=== PATIENT | male | born 1985 | race Two or more races ===

== ENCOUNTER 2016-11-16 19:04 | Emergency (ER) | payer OTHER ==
--- NOTE | ~2016-11-16 | ER ---
PATIENT'S NAME: MARLON MARCH [facility] AGE: 31 Y [address] ROOM: [place] [address] LOCATION: ED ADMIT DATE: 11/16/2016 ER/Outpatient Report DISCHARGE DATE: 11/16/2016 FAMILY PHYSICIAN: PHYSICIAN, NO ATTENDING PHYSICIAN: Travis Stoddard Time of Patient's Arrival: 1904 hours. Time of Patient's Evaluation: 1920 hours. CHIEF COMPLAINT: Fever, headache, blurry vision. HISTORY OF PRESENT ILLNESS: This is a 31-year-old, tbr-[id number]-[id number] male who presents to the ER. States he has not been feeling well for the past 4 days. Interpretation was done through the language line. The patient states he has been having headache, he also states he has blurred vision. He states that he feels like he has fever all over his body and some body aches as well. He states that he has had no cough, no troubles breathing, no chest pain, no troubles with urination. He did take some Tylenol earlier today with no relief of his headache. The patient states he does have some eye glasses that he wears only in the summer and presley when he has normal blurred vision, but he has not been wearing them lately. ALLERGIES: NO KNOWN ALLERGIES. MEDICATIONS: Please see medication list in nurse's notes. PAST MEDICAL HISTORY: Negative. SOCIAL HISTORY: Denies smoking, drug, or alcohol use. REVIEW OF SYSTEMS: A 10-point review of systems was completed and was negative with the exception of those discussed in the HPI. PHYSICAL EXAMINATION: VITAL SIGNS: Weight is 80.7 kg taken, blood pressure is 120/80, pulse 95, respirations , temperature 99.3 degrees tympanically, and saturations 100% on room air. Bentley Coma Score is 15. GENERAL: Alert, calm, well-developed male, in no acute distress. PATIENT'S NAME: ARYAN ALAMO [facility] AGE: 31 Y [address] ROOM: [place] [address] LOCATION: ED ADMIT DATE: 11/16/2016 ER/Outpatient Report DISCHARGE DATE: 11/16/2016 FAMILY PHYSICIAN: PHYSICIAN, NO ATTENDING PHYSICIAN: Travis StoddardENT: Head: Normocephalic. Eyes: Pupils are equal and reactive to light. Ears: TMs display good light reflexes bilaterally. Auditory canals clear. Nose: Turbinates pink with no drainage. Throat is erythematic. No exudates were seen. No lymphadenopathy. LUNGS: Clear to auscultation bilaterally. No wheeze or crackles. Normal respiratory effort. HEART: Regular rate and rhythm. No lifts, thrills, or murmurs. EXTREMITIES: No clubbing, cyanosis, or edema. Full range of motion of all limbs. LABORATORY DATA: CBC: White count is 7.6, hemoglobin is 17.3, and platelets 179. Influenza A and B were negative. Rapid strep was negative. IMPRESSION: 1. Headache. 2. Chills. 3. Blurred vision. ASSESSMENT AND PLAN: We did monitor the patient here for quite some time. We did give him some ibuprofen and some Zofran here, which did improve his headache. I did have him put his eye glasses on, he states that that corrected his blurred vision. I did tell him that straining with his eyes like that could cause headache, so I advised him to use his glasses everyday. He may take Tylenol or ibuprofen as needed for pain control. Continue to push fluids, monitor symptoms, and follow up with primary care physician if he does not improve. The patient understands and agrees with care. ULICES FORD PA-C FOR DO YVETTE QUIROZ/michael /[id number] d: 11/17/16231 t: 11/27/16 0112, OUTPATIENT REPORT
[2016-11-16 19:51] LABS: BASOPHIL % 0.4 %; EOSINOPHIL # 0.2 K/uL (0.0-0.5); EOSINOPHIL % 2.8 %; HEMOGLOBIN 17.3 g/dL (12.0-17.0); IMMATURE GRANULOCYTE % 0.5 %; LYMPHOCYTE # 1.5 K/uL (0.8-4.0); LYMPHOCYTE % 19.7 %; MCH 30.1 pg (27.0-34.0); MCV 83.6 fl (83.0-98.0); MONOCYTE # 0.4 K/uL (0.0-1.0); MONOCYTE % 5.7 %; MPV 11.7 fl (9.4-12.4); NEUTROPHIL # (ANC) 5.4 K/uL (1.4-9.0); NEUTROPHIL % 70.9 %; NRBC % 0 /100WBC (0-0.00); PLATELET COUNT 179 K/uL (150-450); RBC 5.74 M/uL (4.00-6.00); RDW-CV 11.4 % (11.9-14.6); WBC 7.6 K/uL (4.0-11.0)
== END 2016-11-16 20:57 | disposition disaster alternative care site (69) ==
LOC: GMED 19:04
PROVIDERS: Physician Assistant Medical
DX: R50.9 Fever, unspecified (principal); R51 Headache; H53.8 Other visual disturbances

== ENCOUNTER 2016-11-24 10:46 | Inpatient (IN) | payer OTHER ==
[~2016-11-24] VITALS: Ht 175.3 cm; Wt 78.5 kg
--- NOTE | ~2016-11-24 | HP ---
PATIENT'S NAME: MARLON MARCH [facility] AGE: 31 Y [address] ROOM: [place] [address] LOCATION: [facility] ADMIT DATE: 11/24/2016 History & Physical DISCHARGE DATE: FAMILY PHYSICIAN: PHYSICIAN, NO ATTENDING PHYSICIAN: VICENTE JAMES DATE OF SERVICE: CHIEF COMPLAINT: Left lower quadrant abdominal pain. HISTORY OF PRESENT ILLNESS: This is a 31-year-old, -speaking patient who was transferred from [place] to the emergency room of [facility] for management of his elevated blood sugar. History was obtained from the patient through with visual laborer construction or leak gang, Lorrie. The patient is a very poor historian with difficulty understanding the questions which visual posted to him. He reported that he has been having left lower quadrant abdominal pain for the past 2 years on and off. He could not state the severity of the pain as he did not understand what the question was trying to ask him. He denies fever, denies nausea, denies diarrhea. The patient was seen in the ER around 4 days ago when he presented with fever, headache, blurry vision. At that time, nothing significant was found. His symptoms were found to be attributed to the fact that he was not wearing his glasses and so he was given some Tylenol and was told that he should ensure that he wears his glasses regularly and was discharged home. Currently, he also complains of blurry vision and headache. Denies back pain. Denies neck pain. Denies cough. Denies chest pain. Denies urinary symptoms. On arrival to the ER, the patient's blood sugar on chemistry was found to be 755 and he was started on insulin drip and received a total of 2 L of normal saline while in the ER. REVIEW OF SYSTEMS: The 13 elements of review of systems were asked and as documented in the HPI. The others are negative. PAST MEDICAL HISTORY: As per patient, none. PAST SURGICAL HISTORY: As per patient, none. SOCIAL HISTORY: As per patient, denies use of alcohol. Denies history of smoking. FAMILY HISTORY: PATIENT'S NAME: MARLON MARCH [facility] AGE: 31 Y [address] ROOM: [place] [address] LOCATION: GPCU ADMIT DATE: 11/24/2016 History & Physical DISCHARGE DATE: FAMILY PHYSICIAN: PHYSICIAN, NO ATTENDING PHYSICIAN: VICENTE JAMES He reports his father when he was age 10. His mother is currently alive, 52, suffers from headaches. PHYSICAL EXAMINATION: VITAL SIGNS: Temperature 98.8, blood pressure 123/76, pulse 84, and oxygen saturation 96% on room air. GENERAL: Reveals a young -looking patient who is alert, awake, oriented x3, not in any form of respiratory distress or painful distress. NEUROLOGIC: Cranial 2-12 are intact bilaterally. Sensory is intact bilaterally. Power is 5/5 in all the extremities. HEENT: Normocephalic, atraumatic. Pupils equal and reactive to light bilaterally. Pharynx: Mucosa is dry. Tongue is dry and chapped. Ears: No obvious ear discharge or drainage. NECK: Supple. No area of tenderness. No lymphadenopathy. CARDIOVASCULAR SYSTEM: Normal S1, S2. Regular rate and rhythm. CHEST: Clear to auscultation bilaterally. ABDOMEN: Soft, nondistended. No area of tenderness. Positive bowel sounds. EXTREMITIES: There is no joint swelling or erythema or tenderness. SKIN: No rash or skin breakdown. LABORATORY DATA: VBG pH 7.37. Cardiac enzymes: Troponin less than 0.040. WBC 12.1, H and H 18.7/51.8, and platelet 220. Sodium on admission was 129, corrected is 139; potassium 4.1; chloride 92; bicarb 21; and calcium 9.7. AST 41, ALT 127, alkaline phosphatase 300, and total bilirubin 1.4. Anion gap 20.1. Hemoglobin A1c 11.4. UA: Leukocytes negative, wbc rare, nitrite negative, bacteria negative, acetone positive. Amylase 26, lipase 240. Procalcitonin 0.11. Microbiology: HIV nonreactive. Rapid strep pending. ASSESSMENT AND PLAN: This is a 31-year-old male with newly diagnosed diabetes. 1. Diabetes ketoacidosis without coma versus hyperosmolar hyperglycemic state, present on admission. The patient is currently on insulin drip, we will manage him as per the insulin protocol. 2. Hypertonic hyponatremia secondary to hyperglycemia, present on admission. We will hydrate the patient and hopefully the hyponatremia should correct with improvement in his blood sugar. 3. Chronic left lower quadrant abdominal pain. The patient has had a CAT scan done about a couple of years ago which was essentially stable. We will get a repeat CT abdomen and pelvis with IV contrast now for followup. 4. Leukocytosis, present on admission, probably reactive. We will repeat in the morning and follow up and manage accordingly. The line of management was explained to the patient whose questions were answered and had no further questions at this time. PATIENT'S NAME: ARYAN ALAMO [facility] AGE: 31 Y [address] ROOM: [place] [address] LOCATION: [facility] ADMIT DATE: 11/24/2016 History & Physical DISCHARGE DATE: FAMILY PHYSICIAN: PHYSICIAN, NO ATTENDING PHYSICIAN: VICENTE JAMES MD REYES DA SILVA/michael /[id number] D: [id number] T: [id number] HISTORY & PHYSICAL
--- NOTE | ~2016-11-24 | ER ---
PATIENT'S NAME: MARLON MARCH [facility] AGE: 31 Y [address] ROOM: [place] [address] LOCATION: GPCU ADMIT DATE: 11/24/2016 ER/Outpatient Report DISCHARGE DATE: FAMILY PHYSICIAN: PHYSICIAN, NO ATTENDING PHYSICIAN: VICENTE JAMES CHIEF COMPLAINT: General malaise with headache, blurry vision, and dry mouth, decreased intake for the last week. HISTORY OF PRESENT ILLNESS: The patient has not been seen for these issues. He does not have a primary care physician. He does not have any known medical diagnoses. He does not think he has had any exposure to HIV. He has no other medical issues that he is aware of. Wjdq-asf-neyqqvt medications have not made it better. He is having some difficulty keeping down his fluids. No change in bowel habits, but he has had some changes in urination, but it is unclear what those are. Family notes that he is slurring his speech a little more than normal. Shake Maker confirms difficulty understanding the patient. PAST MEDICAL HISTORY: Documented on the record and reviewed by me. SOCIAL HISTORY: Documented on the record and reviewed by me. MEDICATIONS: Documented on the record and reviewed by me. ALLERGIES: DOCUMENTED ON THE RECORD AND REVIEWED BY ME. REVIEW OF SYSTEMS: All systems reviewed and negative except as noted in the HPI. PHYSICAL EXAMINATION: VITAL SIGNS: Blood pressure is 132/92, pulse is 119, respiratory rate is 20, temperature is 97.6, and SpO2 is 97% on room air. GENERAL: The patient does not endorse any pain. NEURO: The patient is very sleepy, but easily arousable. I cannot understand his Iranian; however, the family and automatic i threading machine feeder confirmed that it is slightly slurred. The patient does follow commands in all extremities. No obvious other findings. He is able to read letters 0.25 inch at 2 feet. No obvious other neurologic abnormalities on exam. HEENT: Grossly normocephalic and atraumatic. The eyes are PERRL. The PATIENT'S NAME: MARLON MARCH [facility] AGE: 31 Y [address] ROOM: [place] [address] LOCATION: GPCU ADMIT DATE: 11/24/2016 ER/Outpatient Report DISCHARGE DATE: FAMILY PHYSICIAN: PHYSICIAN, NO ATTENDING PHYSICIAN: VICENTE JAMES oropharynx is dry and tacky. No erythema or exudates. NECK: Supple. The trachea is midline. CHEST: Heart is tachycardic with no murmurs. Lungs are grossly clear to auscultation bilaterally with no rhonchi, wheezes, or rales. ABDOMEN: Soft, nontender, nondistended. No rebound or guarding. BACK: Nontender to palpation throughout. EXTREMITIES: Warm and well perfused. LABORATORY DATA AND X-RAYS: Chest x-ray with no significant abnormalities per my review. CT brain is unremarkable. Labs are notable for the following: Urinalysis: No leukocytes or nitrite, 1000 glucose, not consistent with infection. EKG: Sinus tachycardia. Rate of 90 with otherwise normal intervals and axis. No signs of acute ischemia. Inversion of T-waves isolated in lead V3. No comparison. Hemoglobin A1c is 11.4, mean glucose of 288.5. Blood gas, venous: PH 7.37, pCO2 is 42, bicarb is 24.3. Labs: Sodium of 129, corrects to 139 for glucose; potassium 4.1; chloride is 92; CO2 is 21; glucose is 755; BUN is 22; creatinine is 1.3; GFR is greater than 60. LFTs are notable for an alkaline phosphatase of 300, AST of 41, ALT of 127. Amylase and lipase are within normal limits. Troponin is below threshold. CRP is 0.83. Free T4 is 1.4, TSH is 0.79. HIV is nonreactive. WBC is 12.1 with 10.4 neutrophils, hemoglobin is 18.7, platelets of 220. INR 0.93. Lactate is 1.6. Procalcitonin 0.11. Serum ketones positive at 1:8. IMPRESSION: 1. Diabetic ketoacidosis. 2. New diagnosis of diabetes. 3. Hypovolemia. 4. Artificial hyponatremia secondary to hyperglycemia. 5. Anion gap acidosis secondary to diabetic ketoacidosis. EMERGENCY DEPARTMENT COURSE: The patient was seen and evaluated. His presentation was confounding. He appeared to have a viral prodromal syndrome based on the duration and labs from recent encounter, I was not considering the DKA initially. The patient tested negative for HIV. All of his symptoms can be explained by DKA, which is confirmed based on his laboratory testing. Hemoglobin A1c of greater than 11 indicates diagnosis of diabetes. The patient was given 2 L of NS. I corrected his sodium for his glucose and found it to be 139. No significant metabolic derangement. Tachycardia improved significantly. Insulin drip was initiated, and the patient will be admitted to the Hospitalist Service under Dr. James for further evaluation and treatment of his DKA. CRITICAL CARE: 40 minutes of critical care with time was spent on this patient. Critical PATIENT'S NAME: ARYAN ALAMO [facility] AGE: 31 Y [address] ROOM: [id number] [place], [place] [address] [facility] ADMIT DATE: 11/24/2016 ER/Outpatient Report DISCHARGE DATE: FAMILY PHYSICIAN: PHYSICIAN, ANDREWS ATTENDING PHYSICIAN: VICENTE JAMES care time is warranted for acute life-threatening metabolic derangement and hyperglycemia. Critical care time consisted of evaluating the patient with a automatic i threading machine feeder, performing the physical exam, ordering and interpreting blood tests, EKG, chest x-ray, and discussion of results of the head CT that I ordered. Insulin drip was initiated in addition to volume resuscitation for tachycardia. The patient appeared to overall improve. He was started on the insulin protocol without the bolus. He will be admitted for further evaluation and treatment to Dr. James. MD MONTEZ HOWARD/modl /[id number] d: 11/25/16 0012 t: 11/27/16 2223, OUTPATIENT REPORT
--- NOTE | ~2016-11-24 | DS ---
PATIENT'S NAME: MARLON MARCH [facility] AGE: 31 Y [address] ROOM: [place] [address] LOCATION: GPCU ADMIT DATE: 11/24/2016 Discharge Summary DISCHARGE DATE: FAMILY PHYSICIAN: PHYSICIAN, NO ATTENDING PHYSICIAN: Nacho Irizarry PRINCIPAL DIAGNOSIS: Diabetic ketoacidosis. SECONDARY DIAGNOSIS: Type 1 diabetes (new diagnosis). HOSPITAL COURSE: A 31-year-old gentleman, , with no known past medical history, was admitted to the [facility] with diagnosis of diabetic ketoacidosis. He was aggressively volume resuscitated and was started on insulin drip. His anion gap closed in next 24 hours and he was switched to the subcutaneous long-acting insulin. Adjustments were made to control the blood glucose level adequately. He was provided with diabetic education as well as given education on hypoglycemic symptoms. He will be discharged home on insulin detemir as well as Metformin. Of note, the patient did agree that he will be able to manage money for this insulin. He was provided information that if he does not take insulin, he might be in the life-threatening condition, DKA, which he presented with here. We will set up a followup appointment with our primary care physician at the [facility]. DISCHARGE MEDICATIONS: 1. Insulin detemir 25 units b.i.d. subcutaneously. 2. Sliding scale insulin. 3. Short-acting Humalog/NovoLog. 4. Metformin 500 mg p.o. b.i.d. ACTIVITIES: As tolerated. DIET: Diabetic diet. FOLLOWUP: Follow up with diabetic education on 11/30/2016. Follow up with Dr. Padron/Dr. Rodriguez in 1 week. HEMODYNAMICS ON DISCHARGE: Stable. JOSIE ORTIZ MD PATIENT'S NAME: MARLON MARCH [facility] AGE: 31 Y [address] ROOM: [place] [address] LOCATION: GPCU ADMIT DATE: 11/24/2016 Discharge Summary DISCHARGE DATE: FAMILY PHYSICIAN: PHYSICIAN, NO ATTENDING PHYSICIAN: Nacho Irizarry ULISSES/namratal /[id number] d: 11/27/16 1020 t: 12/02/16 1507, DISCHARGE SUMMARY
[2016-11-24 12:31] LABS: BASOPHIL % 0.3 %; EOSINOPHIL % 0.2 %; HEMATOCRIT 51.8 % (37.0-53.0); HEMOGLOBIN 18.7 g/dL (12.0-17.0); IMMATURE GRANULOCYTE # 0.1 K/uL (0.0-0.3); IMMATURE GRANULOCYTE % 0.5 %; LYMPHOCYTE % 8.4 %; MCH 30.1 pg (27.0-34.0); MCHC 36.1 gm/dL (32.0-36.5); MCV 83.4 fl (83.0-98.0); MONOCYTE # 0.6 K/uL (0.0-1.0); MONOCYTE % 4.7 %; MPV 12.6 fl (9.4-12.4); NEUTROPHIL # (ANC) 10.4 K/uL (1.4-9.0); NEUTROPHIL % 85.9 %; NRBC % 0 /100WBC (0-0.00); RBC 6.21 M/uL (4.00-6.00); RDW-CV 11.8 % (11.9-14.6); WBC 12.1 K/uL (4.0-11.0)
[2016-11-24 12:32] LABS: PLATELET COUNT 220 K/uL (150-450)
[2016-11-24 12:38] LABS: INR - (THERAPEUTIC) 0.93 (0.92-1.07); PROTIME 9.8 SECONDS (9.8-11.4); PTT 22 SECONDS (25-32)
[2016-11-24 12:57] LABS: ALBUMIN 4.4 gm/dL (3.5-5.0); ALK PHOS 300 IU/L (33-138); ALT 127 IU/L (12-78); BLOOD UREA NITROGEN 22 mg/dL (6-24); CALCIUM 9.7 mg/dL (8.5-10.5); CHLORIDE 92 mMol/L (96-110); CO2 21 mMol/L (22-32); CREATININE 1.3 mg/dL (0.6-1.3); ESTIMATED GFR (MDRD EQUATION) > 60; SODIUM 129 mMol/L (135-145); TOTAL BILIRUBIN 1.4 mg/dL (0.0-1.5); TOTAL PROTEIN 8.6 g/dL (6.0-8.4)
[2016-11-24 13:01] LABS: ANION GAP 20.1 (10.0-19.0); POTASSIUM 4.1 mMol/L (3.7-5.1)
[2016-11-24 13:02] LABS: AST 41 IU/L (10-40)
[2016-11-24 13:08] LABS: BICARBONATE 24.3 mmol/L (18.0-23.0); PCO2 42 mmHg (35-45); PO2 88 mmHg (80-90)
[2016-11-24 13:57] LABS: BILIRUBIN URINE NEGATIVE (NEGATIVE); BLOOD URINE 10 /UL (NEGATIVE); GLUCOSE URINE 1000 mg/dL (NEGATIVE); KETONE URINE 50 mg/dL (NEGATIVE); LEUKOCYTES URINE NEGATIVE /UL (NEGATIVE); NITRITE URINE NEGATIVE (NEGATIVE); PROTEIN URINE 30 mg/dL (NEGATIVE); UROBILINOGEN URINE NORMAL (NORMAL)
[2016-11-24 13:58] LABS: COLOR URINE YELLOW (YELLOW); TURBIDITY URINE CLEAR (CLEAR)
[2016-11-24 14:13] LABS: RBC URINE NEGATIVE #/HPF (NEGATIVE); WBC URINE RARE #/HPF (NEGATIVE)
[2016-11-24 14:14] LABS: BACTERIA URINE NEGATIVE (NEGATIVE); EPITHELIAL URINE RARE #/HPF (NEGATIVE)
[2016-11-24 16:55] LABS: BLOOD UREA NITROGEN 16 mg/dL (6-24); CALCIUM 7.9 mg/dL (8.5-10.5); CO2 27 mMol/L (22-32); CREATININE 1.1 mg/dL (0.6-1.3); ESTIMATED GFR (MDRD EQUATION) > 60; PHOSPHORUS 2.8 mg/dL (2.5-4.9); POTASSIUM 3.5 mMol/L (3.7-5.1)
[2016-11-24 16:58] LABS: ANION GAP 12.5 (10.0-19.0); CHLORIDE 111 mMol/L (96-110); SODIUM 147 mMol/L (135-145)
--- NOTE | 2016-11-24 18:56 | NUR ---
D:Patient admitted from ER at 1430. Used [employer] to do database. Patient rouses easily but does seem slow to answer questions from nurse or doctor. Has insulin gtt infusing. Report was called from ER by Radha at 1415. Dr. Irizarry up to see patient. Orders given. P:Bring sugar down, and monitor accuchecks. Diabetic education
--- NOTE | 2016-11-25 03:36 | NUR ---
Significant Event: PATIENT DROWSY MOST OF THE SHIFT. VENEZUELAN SPEAKING ONLY WITH LITTLE DJIBOUTIAN. USED MARTTI TANK DRIVER TO COMMUNICATE WITH PATIENT. FAMILY IN ROOM WITH PATIENT. SLOW TO RESPOND. PATIENT STATES HE FEELS HE CANT TALK STRAIGHT AND IT IS UNORDINARY FOR HIM. AFEBRILE. VSS ON RA. TYLENOL GIVEN AROUND 1930 FOR A HEADACHE. NO C/O OF PAIN THE REST OF THE NIGHT. PATIENT IS RESTING COMFORTABLY. TURNS SELF. IV TO L) HAND WITH 1/2 NS WITH 40 MEQ KCL RUNNING AT 100 ML/H. GAVE 40 MEQ KCL IV X1 FOR A K OF 3.5. SHUT INSULIN GTT OFF 1932. ACCUCHECK AT 2100 WAS 378. 9 UNITS OF NOVOLOG GIVEN PER MODERATE SLIDING SCALE. VOIDS FINE. BM X1. Follow up: CONTINUE WITH PLAN OF CARE.
[2016-11-25 04:51] LABS: BASOPHIL % 0.5 %; EOSINOPHIL # 0.2 K/uL (0.0-0.5); EOSINOPHIL % 1.9 %; HEMATOCRIT 42.6 % (37.0-53.0); HEMOGLOBIN 14.6 g/dL (12.0-17.0); IMMATURE GRANULOCYTE # 0.1 K/uL (0.0-0.3); IMMATURE GRANULOCYTE % 0.6 %; LYMPHOCYTE # 2.1 K/uL (0.8-4.0); LYMPHOCYTE % 24.7 %; MCH 30.4 pg (27.0-34.0); MCHC 34.3 gm/dL (32.0-36.5); MONOCYTE # 0.4 K/uL (0.0-1.0); MONOCYTE % 4.7 %; MPV 12.4 fl (9.4-12.4); NEUTROPHIL # (ANC) 5.8 K/uL (1.4-9.0); NEUTROPHIL % 67.6 %; NRBC % 0 /100WBC (0-0.00); RDW-CV 12.2 % (11.9-14.6); WBC 8.5 K/uL (4.0-11.0)
[2016-11-25 04:53] LABS: MCV 88.8 fl (83.0-98.0); PLATELET COUNT 171 K/uL (150-450)
[2016-11-25 06:18] LABS: ANION GAP 9.8 (10.0-19.0); BLOOD UREA NITROGEN 9 mg/dL (6-24); CALCIUM 7.7 mg/dL (8.5-10.5); CHLORIDE 112 mMol/L (96-110); CO2 26 mMol/L (22-32); CREATININE 0.7 mg/dL (0.6-1.3); ESTIMATED GFR (MDRD EQUATION) > 60; MAGNESIUM 2.2 mg/dL (1.8-2.6); POTASSIUM 3.8 mMol/L (3.7-5.1); SODIUM 144 mMol/L (135-145)
--- NOTE | 2016-11-25 15:30 | NUR ---
Significant Event:Patient's IVF are off. Appetite is fairly good. Accuchecks are 0700-252, 6 units SSI, and at 1100-338- 6 units SSI. Patient did get Levimer 12 units. Started on Diflucan today, and Magic Mouth wash. Was c/o sore tongue.Had Tylenol for headache this am. No BM's. Patient response to ques tions is more spontaneous. States he feels clearer today. Reports that his eyes still seem blurry. talked with patient about following up with eye doctor. Follow up:Diabetic ED to see tomorrow; Monitor accuchecks; Home tomorrow of Saturday.
--- NOTE | 2016-11-26 02:49 | NUR ---
Significant Event: A/0X3. WOLOF SPEAKING ONLY. USED MARTTI AND FAMILY TO TRANSLATE THROUGHOUT THE SHIFT. RESTED IN BED ALL OF SHIFT. SBA UP TO BR. AFEBRILE. VSS ON RA. DENIES PAIN. IV TO L) HAND SL. ACCUCHECK AT 2100 WAS 329. 6 UNITS WAS GIVEN PER THE MILD SLIDING SCALE. ALSO INCREASED HIS LEVEMIR TO 17 UNITS BID. VOIDS FINE. NO BM THIS SHIFT. BAG MACHINE OPERATOR TO SEE PATIENT TODAY. Follow up: CONTINUE WITH PLAN OF CARE.
[2016-11-26 05:25] LABS: BASOPHIL % 0.5 %; EOSINOPHIL # 0.1 K/uL (0.0-0.5); EOSINOPHIL % 2.1 %; HEMATOCRIT 43.8 % (37.0-53.0); HEMOGLOBIN 15.3 g/dL (12.0-17.0); IMMATURE GRANULOCYTE # 0.1 K/uL (0.0-0.3); IMMATURE GRANULOCYTE % 0.8 %; LYMPHOCYTE # 1.7 K/uL (0.8-4.0); LYMPHOCYTE % 27.9 %; MCH 30.4 pg (27.0-34.0); MCHC 34.9 gm/dL (32.0-36.5); MCV 86.9 fl (83.0-98.0); MONOCYTE # 0.4 K/uL (0.0-1.0); MONOCYTE % 5.8 %; MPV 11.9 fl (9.4-12.4); NEUTROPHIL # (ANC) 3.9 K/uL (1.4-9.0); NEUTROPHIL % 62.9 %; NRBC % 0 /100WBC (0-0.00); PLATELET COUNT 155 K/uL (150-450); RBC 5.04 M/uL (4.00-6.00); RDW-CV 11.9 % (11.9-14.6); WBC 6.2 K/uL (4.0-11.0)
[2016-11-26 05:43] LABS: ANION GAP 10.4 (10.0-19.0); BLOOD UREA NITROGEN 10 mg/dL (6-24); CALCIUM 7.7 mg/dL (8.5-10.5); CHLORIDE 105 mMol/L (96-110); CO2 28 mMol/L (22-32); CREATININE 0.8 mg/dL (0.6-1.3); ESTIMATED GFR (MDRD EQUATION) > 60; POTASSIUM 3.4 mMol/L (3.7-5.1); SODIUM 140 mMol/L (135-145)
[2016-11-26 10:42] LABS: ALBUMIN 3.1 gm/dL (3.5-5.0); TOTAL PROTEIN 6.1 g/dL (6.0-8.4)
[2016-11-26 10:43] LABS: TOTAL BILIRUBIN 0.6 mg/dL (0.0-1.5)
--- NOTE | 2016-11-26 12:45 | NUR ---
[facility] note: [id number] Began education with daughter Yue and spouse Simran, and patient. Patient and spouse speak very little rwandan, daughter is helpful and will probably be the one assisting patient with care at home. [facility] teacher present for teaching and daughter assist some also. Written materials in rwandan and urdu provided, Diabetes management Diabetes Survival skills checklist is utilized to begin education. Explained type 1 diabetes and need for insulin injections. Levemir and Novolog insulin action, storage and site rotation explained and demonstrated use of insulin pen devices. Will try to provide vouchers for insulin upon dismissal as patient is self pay, and patient states that he is not currently employed. Daughter Yue does the must returning of demonstration during the entire educational session. She also asks many appropriate questions and states she will be assisting most at home, as patient is having some vision difficulties. Meter Free Style Lite meters x2 provided and demonstrated use, explained that he will probably be asked to test blood sugars at home at least 4 times per day, and if unable to purchases strips for Free Style meter, he can purchase less costly strips at [facility], [facility] On meter. Demonstrated use of insulin pen device and daughter is the only person who is willing, at this time to return the demonstration of insulin injections. We did discussed site rotation. Discussed A1C of 11.4 % and goal 7 % (to begin) and rational of same to reduce risks of complications related to diabetes with heart, eyes, kidneys and nerves. Family states understanding. Patient will need much for education prior to dismissal. Patient reports the family needs eat alot of traditional venezuelan foods and consult was submitted for Dietitian to assist with meal planning and carb counting. Will definitely need on-going education post hospital stay, patient does see MD at [facility] in [place], [place] Patient lays quietly in bed with much of the educational session and only answers questions via fire control technician b with yes and no answers.
--- NOTE | 2016-11-26 13:35 | NUR ---
Sharon, ink grinder and I visited with patient and young children at bedside. Introduced self and care management services to him. Lives in [place]. Asked if Diabetic Nurse Educator has visited him and he says she has, asked if he has any questions about what he will need to do to take care of himself at home and he says no. Asked if any concerns about going home on discharge and he says no. Asked if he has health insurance and he does not. Denies needs right now. Called the Diabetic Nurse Educators office and asked them to call me back with what their insulin recommendations are and if they have coupons to assist him. Will follow.
--- NOTE | 2016-11-26 13:47 | NUR ---
[facility] Center note: 1300 Continued teaching with daughter, spouse and patient. Demonstrated insulin pen devices again and action, returns demo x1 with spouse this time, she is somewhat hesitant with procedure. Patient is self pay and so we recommend [employer] products for insulin, so that we can use vouchers. Will leave on chart and let CDE continue with education and final orders on 11/27/16. Care management called to inquire and information provided to them, will need follow up and assess community resources as it sounds as if there is no one in the household employed at this time. Medical ID information provided and samples of lancets, a log book to record all blood sugars and other written materials Had Family also return demonstration again with the blood glucose meter and shown log book to write down blood sugars. hvac engineer was not available at this time, margaret Turner assists and does well in reading some of information to patient on foot care and in explaining hypoglycemia signs and symptoms and treatment, Patient always just replys with "OK". Unsure at this time if patient is comprehending information.
--- NOTE | 2016-11-26 14:28 | NUR ---
Spoke with patient, his , and 15 year old daughter. The 15 year old daughter was interpreting, and seemed to have the best understanding. Explained what foods were carbs, proteins, and fats and the conversion to blood glucose, and the rationale for food regulation of each group. Discussed why carb counting was necessary and which foods fit into each category of carbs, proteins, and fats. Showed them how to read a food label to determine grams of carbs per serving. Asked daughter to demonstrate carb counting of sample foods in the room with food labels, which she was somewhat able to do. However, patient and his were very drowsy during the conversation, and seemed to have less interest that the daughter. There seemed to be very little understanding of the information presented, especially to patient and his . Ongoing education will be necessary for success. They did have many questions about alcohol, making dietitian question a drinking problem, which they denied.
--- NOTE | 2016-11-26 16:01 | NUR ---
[facility] note: 1600 After spending much time with patient and family in room today, and discussing patient teaching session that the dietitian had with patient and family today..... CDE questions the patient and family's comprehension of education and details provided. Ana Maria voucher is left on front of patient's chart with recommendation that MD consider ordering 75/25 insulin for patient use at home. Patient is not a good candidate for carb counting with insulin dosing as he and family are not understanding very basic information related to food. A copy of the Diabetes Survival Skills checklist is on the front of patient's chart for CDE on 11/27/16, to continue education and follow up.
--- NOTE | 2016-11-26 16:02 | NUR ---
PATIENT A&O THIS SHIFT. NON-DROWSY. [facility] SPEAKING ONLY, USING MARRTI TO COMMUNICATE. ON AC/HS ACCUCHECKS. 260-270'S ACCUCHECKS. ON MILD SLIDING SCALE. INCREASED LEVEMIR TO 22 UNITS TWICE DAILY. PATIENT UP IN HALLWAYS AND AD EDMOND IN ROOM. VOIDS W/O DIFFICULTY. 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 CEREAL SUPERVISOR CONCERNED WITH COMPLIANCE AFTER D/C. SELF-PAY INSURANCE AT THIS TIME. POSSIBLY SPEAK TO MD ABOUT 75/25 INSULIN FOR POSSIBILITY OF INSULIN VOUCHER. C/O OF NUMBNESS/TINGLING PAIN IN R) LEG. PRN TYLENOL GIVEN. BLURRED VISION BUT IMPROVES WHEN WEARING PRESCRIBED GLASSES. FAMILY AT BEDSIDE MOST OF SHIFT. TO CON'T WITH POC. POSSIBLE D/C TOMORROW.
--- NOTE | 2016-11-27 04:47 | NUR ---
Significant Event: VSS, PT AFEBRILE. UP TO BATHROOM AD EDMOND. CONTINUES ON RA WITH SATS IN THE MID 90'S. PT DOES HAVE SOME CO PAIN IN HIS RIGHT CALF-TYLENOL GIVEN. 266 BLOOD SUGAR. PT USES CALL LIGHT APPROPRIATELY. A&OX3 Follow up:
[2016-11-27 05:32] LABS: BASOPHIL % 0.6 %; EOSINOPHIL # 0.1 K/uL (0.0-0.5); EOSINOPHIL % 1.9 %; HEMATOCRIT 47.5 % (37.0-53.0); HEMOGLOBIN 16.3 g/dL (12.0-17.0); IMMATURE GRANULOCYTE # 0.1 K/uL (0.0-0.3); IMMATURE GRANULOCYTE % 1.3 %; LYMPHOCYTE # 1.8 K/uL (0.8-4.0); LYMPHOCYTE % 28.7 %; MCH 29.9 pg (27.0-34.0); MCHC 34.3 gm/dL (32.0-36.5); MONOCYTE # 0.4 K/uL (0.0-1.0); MONOCYTE % 7.1 %; NEUTROPHIL # (ANC) 3.8 K/uL (1.4-9.0); NEUTROPHIL % 60.4 %; NRBC % 0 /100WBC (0-0.00); PLATELET COUNT 173 K/uL (150-450); RBC 5.46 M/uL (4.00-6.00); RDW-CV 11.8 % (11.9-14.6); WBC 6.2 K/uL (4.0-11.0)
[2016-11-27 05:49] LABS: ALBUMIN 3.2 gm/dL (3.5-5.0); ALK PHOS 101 IU/L (33-138); ALT 100 IU/L (12-78); ANION GAP 11.9 (10.0-19.0); AST 56 IU/L (10-40); BLOOD UREA NITROGEN 11 mg/dL (6-24); CALCIUM 8.5 mg/dL (8.5-10.5); CHLORIDE 103 mMol/L (96-110); CO2 28 mMol/L (22-32); CREATININE 0.8 mg/dL (0.6-1.3); ESTIMATED GFR (MDRD EQUATION) > 60; POTASSIUM 3.9 mMol/L (3.7-5.1); SODIUM 139 mMol/L (135-145); TOTAL BILIRUBIN 0.7 mg/dL (0.0-1.5); TOTAL PROTEIN 6.6 g/dL (6.0-8.4)
--- NOTE | 2016-11-27 10:28 | NUR ---
Diabetes Consult: Patient is speaking only and newly diagnosed with diabetes. Discussed treatment options with Dr. Stein and that Levemir pens will cost approximately $300, with the patient being self pay. Dr. Morse visited with the patient with the use of the [employer] interpretor and the patient indicates he will be able to afford his insulin. Patient reports he does not have a primary doctor and will follow up next week with a physician here. Dr. Morse requesting the patient return Saturday to [facility] to follow up with CDE. Patient was instructed on the use of his glucometer and was able to check his blood sugar on his machine. Additional samples of testing supplies, lancets and pen needles were given. Patient will be discharged with voucher to obtain Humalog kwik pens for correction, script for Levemir and will starte metformin. No family present. Will return and educate patient when family present.
[2016-11-27] MEDS ORDERED: NOVOLOG100 UNIT/M SUB-Q (11:11)
[2016-11-27] MEDS ORDERED: GLUCOPHAGE500 MG PO (11:14)
[2016-11-27] MEDS ORDERED: LANTUS (IN100 UNIT/M SUB-Q (11:15)
[2016-11-27] MEDS ORDERED: HUMALOG KW200 UNIT/1 SUB-Q (11:23)
== END 2016-11-27 13:00 | disposition disaster alternative care site (69) | DRG 638 ==
LOC: GMED 10:46 → GPCU 13:46
PROVIDERS: Emergency Medicine; Internal Medicine; ADMIT Hospitalist
DX: E10.10 Type 1 diabetes mellitus with ketoacidosis without coma (principal); E87.1 Hypo-osmolality and hyponatremia; E86.1 Hypovolemia; D72.829 Elevated white blood cell count, unspecified
CPT/HCPCS: J1644; J1650; J3480; J7030; J7060; J7121; Q9967

== ENCOUNTER → 2016-11-30 | Outpatient (CLI) | payer OTHER ==
[~2016-11-30] MED LIST: GLUCOPHAGE500 MG PO; HUMALOG KW200 UNIT/1 SUB-Q; LANTUS (IN100 UNIT/M SUB-Q; NOVOLOG100 UNIT/M SUB-Q
== END | disposition disaster alternative care site (69) ==
LOC: GDIC 13:59
DX: E10.65 Type 1 diabetes mellitus with hyperglycemia (principal)
CPT/HCPCS: G0108